=== PATIENT | female | born 1955 | race Caucasian/White ===

== ENCOUNTER 2023-06-01 21:26 | Emergency (ER) | payer OTHER ==
[2023-06-01 21:38] VITALS: BP 114/67; PULSE 102; RESP 18; TEMP 98; BMI 25.5
[2023-06-01] MEDS ORDERED: HYDROCORTISONE 2.5% TOPICAL CREAM 30 GM TUBE PR ONE (22:26)
[2023-06-01] MEDS ORDERED: LIDOCAINE HCL 2% JELLY 10 ML CARTRIDGE PR ONE (22:27)
[2023-06-01] MEDS ORDERED: LIDOCAINE HCL 2% JELLY 6 ML TP ONE (22:38)
== END 2023-06-01 23:34 | disposition home or self-care (01) ==
LOC: JER 21:26
DX: K64.9 Unspecified hemorrhoids (principal); R19.7 Diarrhea, unspecified; K62.89 Other specified diseases of anus and rectum
CPT/HCPCS: 99283-25